=== PATIENT | female | born 1985 | race Caucasian/White ===

== ENCOUNTER 2022-11-19 17:49 | Emergency (ER) | payer OTHER ==
[2022-11-19] MEDS ORDERED: SODIUM CHLORIDE 1,000 ML IV STA ×2 (18:04→18:49)
[2022-11-19 18:22] VITALS: BP 122/72; PULSE 68; RESP 18; TEMP 98; BMI 27.3
[2022-11-19] MEDS ORDERED: KETOROLAC TROMETHAMINE 15 MG/ML VIAL IVPUSH ONE (18:29)
[2022-11-19 18:40] LABS: HEMATOCRIT 37.1 % (32.4-45.2); HEMOGLOBIN 12.5 G/dL (10.7-15.3); MCH 31.2 pg (25.7-33.7); MCHC 33.8 g/dl (32.0-36.0); MEAN CELL VOLUME 92.6 fl (80-96); MEAN PLT VOLUME 8.5 fl (7.5-11.1); PLATELET COUNT 169.7 10^3/uL (134-434); RBC 4.01 10^6/uL (3.60-5.2); RDW 13.5 % (11.6-15.6); WHITE BLOOD COUNT 5.3 10^3/uL (4.0-10.8)
[2022-11-19 18:45] LABS: ALBUMIN 3.9 g/dl (3.4-5.0); BLOOD UREA NITROGEN 10.1 mg/dl (7-18); CALCIUM 8.1 mg/dl (8.5-10.1); CREATININE 0.7 mg/dl (0.6-1.3); POTASSIUM 3.1 mmol/L (3.5-5.1); SGOT/AST 17.6 U/L (15-37); SGPT/ALT 18.6 U/L (7-52); TOT PROT 6.5 g/dl (6.4-8.2)
[2022-11-19] MEDS ORDERED: KETOROLAC TROMETHAMINE 15 MG/ML VIAL ONE (18:49)
[2022-11-19 19:09] LABS: PLATELET ESTIMATE ADEQUATE
[2022-11-19] MEDS ORDERED: POTASSIUM CHLORIDE TABS 20 MEQ TABLET.ER (FP) PO ONE ×2 (19:17→19:19)
[2022-11-19 19:38] LABS: HCG,QUALITATIVE URINE Negative
[2022-11-19 19:57] LABS: BILIRUBIN,TOTAL 0.4 mg/dL (0.2-1)
[2022-11-19 19:58] LABS: EPITHELIAL CELLS FEW /hpf
[2022-11-19] MEDS ORDERED: PANTOPRAZOLE 40 MG TABLET PO ONE (21:53)
== END 2022-11-19 22:12 | disposition home or self-care (01) ==
LOC: FER 17:49
PROC: 3E0333Z Introduction of Anti-inflammatory into Peripheral Vein, Percutaneous Approach (ICD-10-PCS; principal; 2022-11-19)
PROC: 3E0337Z Introduction of Electrolytic and Water Balance Substance into Peripheral Vein, Percutaneous Approach (ICD-10-PCS; 2022-11-19)
DX: K52.9 Noninfective gastroenteritis and colitis, unspecified (principal); K29.70 Gastritis, unspecified, without bleeding; R10.13 Epigastric pain
CPT/HCPCS: 36415; 74177-TC; 80053; 81003; 81015; 81025; 83690; 84703; 85027; 99285-25; Q9967